=== PATIENT | male | born 1975 | race Two or more races ===

== ENCOUNTER → 2017-04-14 | Outpatient (CLI) | payer OTHER ==
--- NOTE | 2017-04-14 14:51 | REP ---
Left knee series: Five views. History: Acute pain in the left knee. No comparison views. Findings: Five views of the left knee demonstrate mild osteoarthritic spurring at the medial compartment. There is a normal fabella. There is minimal patellar spurring. There is fragmented bony hypertrophy from the medial aspect of the distal femur at the proximal attachment the medial collateral ligament consistent with an old medial collateral ligament injury. No acute bony abnormality is seen. Impression: Evidence of old MCL injury. Mild patellofemoral and medial compartment osteoarthritis. No acute abnormality. Signed by Tramaine Shah MD 04/14/2017 03:33 P
--- NOTE | 2017-04-14 15:01 | REP ---
Lumbar spine series: Five views. History: Acute low back pain. Comparison study: June 30, 2015. Findings: Lumbar vertebral body heights are preserved. There is some straightening. Alignment is otherwise normal. There is fairly advanced degenerative disc disease at L5-S1 and moderate narrowing is seen of the L4-5 disc. Pedicles and posterior elements are intact. There is no evidence of spondylolysis or spondylolisthesis. Sacrum and SI joints are intact. Psoas margins are symmetric. There is a density consistent with a clip in the right lower abdomen. The degenerative disc changes at L5-S1 and L4-5 are radiographically more pronounced than on the June 30, 2015 prior study. Impression: Advanced L5-S1 degenerative disc disease. Moderate degenerative disc changes at L4-5. There are mild osteoarthritic facet changes bilaterally at these levels as well. Radiographically these changes are more pronounced than on the 2014 prior study. No acute bony abnormality. Signed by Tramaine Shah MD 04/14/2017 03:33 P
--- NOTE | 2017-04-14 15:10 | REP ---
THORACIC SPINE: AP and lateral views of the thoracic spine are performed. Four total views were obtained. There is no compression fracture or malalignment with normal thoracic kyphosis. There is mild diffuse spurring with slight disc space narrowing at multiple levels and mild subchondral sclerosis. The posterior elements are intact. IMPRESSION: Mild diffuse degenerative changes without fracture or dislocation. Signed by Vladimir Stephenson MD 04/14/2017 04:15 P
== END ==
LOC: M ADAMS 10:46
PROVIDERS: ATTEND Physician Assistant Medical
DX: M54.5 Low back pain (principal); M25.562 Pain in left knee

== ENCOUNTER → 2017-04-14 | Outpatient (REF) | payer OTHER ==
[2017-04-14 13:38] LABS: BASO # 0.1 10^3/uL (0.0-0.2); BASO % 0.5 % (0.0-1.0); EOS # 0.2 10^3/uL (0.0-0.50); EOS % 2.3 % (0.0-3.0); IMMATURE GRANULOCYTE % 0.4 % (0-0); LYMPH # 2.6 10^3/uL (1.5-4.5); MEAN CORPUSCULAR HEMOGLOBIN 31.6 pg (27.0-33.0); MEAN CORPUSCULAR HGB CONC 33.8 g/dl (32.0-36.5); MEAN CORPUSCULAR VOLUME 93.6 fl (80.0-96.0); MONO # 0.7 10^3/uL (0.0-0.8); MONO % 6.6 % (0.0-5.0); NEUTROPHILS # 6.4 10^3/uL (1.8-7.7); NEUTROPHILS % 64.2 % (36.0-66.0); PLATELET COUNT, AUTOMATED 298 10^3/uL (150-450); RED CELL DISTRIBUTION WIDTH 13.3 % (11.5-14.5); WHITE BLOOD COUNT 9.9 10^3/uL (4.0-10.0)
[2017-04-14 13:40] LABS: ADD MANUAL DIFFER NO; DIFF SLIDE NUMBER 194
[2017-04-14 16:04] LABS: ALBUMIN 3.7 GM/DL (3.2-5.2); ALBUMIN/GLOBULIN RATIO 0.97 (1.00-1.93); ALKALINE PHOSPHATASE 89 U/L (45-117); ALT/SGPT 24 U/L (12-78); ANION GAP 6 MEQ/L (8-16); AST/SGOT 16 U/L (15-37); BILIRUBIN,TOTAL 0.3 MG/DL (0.2-1.0); BLOOD UREA NITROGEN 12 MG/DL (7-18); CALCIUM LEVEL 8.7 MG/DL (8.5-10.1); CARBON DIOXIDE LEVEL 26 MEQ/L (21-32); CHLORIDE LEVEL 106 MEQ/L (98-107); CHOLESTEROL LEVEL 164 MG/DL (<200); CREATININE FOR GFR 0.77 MG/DL (0.70-1.30); FREE T4 0.91 NG/DL (0.76-1.46); GLOMERULAR FILTRATION RATE > 60.0 (>60); GLUCOSE, FASTING 108 MG/DL (70-105); POTASSIUM SERUM 4.5 MEQ/L (3.5-5.1); SODIUM LEVEL 138 MEQ/L (136-145); TOTAL PROTEIN 7.5 GM/DL (6.4-8.2); TRIGLYCERIDES LEVEL 618 MG/DL (<150)
[2017-04-17 00:07] LABS: Lyme Disease IgG Ab 18 kDa Ban Present (.); Lyme Disease IgG Ab 23 kDa Ban Present (.); Lyme Disease IgG Ab 28 kDa Ban Absent (.); Lyme Disease IgG Ab 30 kDa Ban Present (.); Lyme Disease IgG Ab 39 kDa Ban Present (.); Lyme Disease IgG Ab 41 kDa Ban Present (.); Lyme Disease IgG Ab 45 kDa Ban Present (.); Lyme Disease IgG Ab 58 kDa Ban Absent (.); Lyme Disease IgG Ab 66 kDa Ban Present (.); Lyme Disease IgG Ab 93 kDa Ban Absent (.); Lyme Disease IgG West Blot Int Positive (.); Lyme Disease IgG/IgM Antibodie 2.23 ISR (0.00-0.90); Lyme Disease IgM Ab 23 kDa Ban Present (.); Lyme Disease IgM Ab 39 kDa Ban Absent (.); Lyme Disease IgM Ab 41 kDa Ban Present (.); Lyme Disease IgM Ab Quantitati 1.69 index (0.00-0.79); Lyme Disease IgM West Blot Int Positive (.)
== END ==
LOC: M SFHCADAM 10:35
PROVIDERS: ATTEND Physician Assistant Medical
DX: K21.9 Gastro-esophageal reflux disease without esophagitis (principal); Z82.49 Family history of ischemic heart disease and other diseases of the circulatory system; F17.210 Nicotine dependence, cigarettes, uncomplicated; W57.XXXA Bitten or stung by nonvenomous insect and other nonvenomous arthropods, initial encounter

== ENCOUNTER → 2017-09-03 | Outpatient (REF) | payer OTHER ==
[2017-09-03 13:03] LABS: ALBUMIN 3.6 GM/DL (3.2-5.2); ALBUMIN/GLOBULIN RATIO 0.97 (1.00-1.93); ALKALINE PHOSPHATASE 79 U/L (45-117); ALT/SGPT 31 U/L (12-78); ANION GAP 6 MEQ/L (8-16); AST/SGOT 26 U/L (7-37); BILIRUBIN,TOTAL 0.3 MG/DL (0.2-1.0); BLOOD UREA NITROGEN 14 MG/DL (7-18); CALCIUM LEVEL 9.4 MG/DL (8.5-10.1); CARBON DIOXIDE LEVEL 28 MEQ/L (21-32); CHLORIDE LEVEL 103 MEQ/L (98-107); CHOLESTEROL LEVEL 201 MG/DL (<200); CHOLESTEROL RISK RATIO 5.742 (<5); CREATININE FOR GFR 0.87 MG/DL (0.70-1.30); GLOMERULAR FILTRATION RATE > 60.0 (>60); GLUCOSE, FASTING 121 MG/DL (70-100); HDL CHOLESTEROL 35 MG/DL (>40); LDL CHOLESTEROL 92.4 MG/DL (<100); NON-HDL-C 166 MG/DL; POTASSIUM SERUM 4.6 MEQ/L (3.5-5.1); SODIUM LEVEL 137 MEQ/L (136-145); TOTAL PROTEIN 7.3 GM/DL (6.4-8.2); TRIGLYCERIDES LEVEL 368 MG/DL (<150)
== END ==
LOC: M SFHCADAM 09:14
DX: K21.9 Gastro-esophageal reflux disease without esophagitis (principal); E55.9 Vitamin D deficiency, unspecified; E78.1 Pure hyperglyceridemia

== ENCOUNTER → 2018-10-27 | Outpatient (REF) | payer OTHER ==
[2018-10-27 12:41] LABS: BASO # 0.1 10^3/uL (0.0-0.2); BASO % 0.6 % (0.0-1.0); EOS # 0.3 10^3/uL (0.0-0.50); EOS % 2.4 % (0.0-3.0); HEMATOCRIT 47.7 % (42.0-52.0); LYMPH # 3.2 10^3/uL (1.5-4.5); MEAN CORPUSCULAR HEMOGLOBIN 31.2 pg (27.0-33.0); MEAN CORPUSCULAR HGB CONC 33.5 g/dl (32.0-36.5); MONO # 0.8 10^3/uL (0.0-0.8); MONO % 7.7 % (0.0-5.0); NEUTROPHILS # 6.3 10^3/uL (1.8-7.7); NEUTROPHILS % 58.8 % (36.0-66.0); PLATELET COUNT, AUTOMATED 300 10^3/uL (150-450); RED BLOOD COUNT 5.13 10^6/uL (4.30-6.10); WHITE BLOOD COUNT 10.7 10^3/uL (4.0-10.0)
[2018-10-27 13:05] LABS: ALT/SGPT 51 U/L (12-78); BILIRUBIN,TOTAL 0.3 MG/DL (0.2-1.0); BLOOD UREA NITROGEN 15 MG/DL (7-18); CALCIUM LEVEL 9.3 MG/DL (8.5-10.1); CARBON DIOXIDE LEVEL 28 MEQ/L (21-32); CHLORIDE LEVEL 104 MEQ/L (98-107); CHOLESTEROL LEVEL 250 MG/DL (<200); CREATININE FOR GFR 0.78 MG/DL (0.70-1.30); GLOMERULAR FILTRATION RATE > 60.0 (>60); GLUCOSE, FASTING 128 MG/DL (70-100); HDL CHOLESTEROL 29 MG/DL (>40); NON-HDL-C 221 MG/DL; POTASSIUM SERUM 4.2 MEQ/L (3.5-5.1); SODIUM LEVEL 140 MEQ/L (136-145); TOTAL PROTEIN 7.9 GM/DL (6.4-8.2); TRIGLYCERIDES LEVEL 847 MG/DL (<150)
[2018-10-27 13:12] LABS: TOTAL 25(OH) VITAMIN D 11.4 NG/ML (30.0-100.0)
== END ==
LOC: M SFHCADAM 09:20
PROVIDERS: ATTEND Physician Assistant Medical
DX: K21.9 Gastro-esophageal reflux disease without esophagitis (principal); E55.9 Vitamin D deficiency, unspecified; E78.1 Pure hyperglyceridemia

== ENCOUNTER 2019-05-09 16:57 | Emergency (ER) | payer OTHER, SELFPAY ==
[~2019-05-09] VITALS: Ht 185.4 cm; Wt 95.5 kg
[2019-05-09] MEDS ORDERED: MELO15TA28 (17:05)
[2019-05-09] MEDS ORDERED: OMEP-218 (17:05)
[2019-05-09] MEDS ORDERED: NAPR-837 PO (19:30)
[2019-05-09] MEDS ORDERED: KETOROLAC 60 MG/2 ML VIAL (J1885) IM ONE (19:30)
[2019-05-09] MEDS ORDERED: traMADol 50 MG TAB (BULK 4 TAB ED) PO ONE (19:45)
[2019-05-09 19:47] VITALS: BP 142/88
== END 2019-05-09 20:03 | disposition home or self-care (01) ==
LOC: M ED 16:57
DX: M54.42 Lumbago with sciatica, left side (principal); F17.200 Nicotine dependence, unspecified, uncomplicated; Z79.899 Other long term (current) drug therapy
CPT/HCPCS: 96372; 99283; J1885

== ENCOUNTER → 2020-01-05 | Outpatient (REF) | payer OTHER ==
[~2020-01-05] MED LIST: MELO15TA28; NAPR-837 PO; OMEP-218
[2020-01-05 17:50] LABS: ALBUMIN 3.7 GM/DL (3.2-5.2); ALT/SGPT 77 U/L (12-78); BILIRUBIN,TOTAL 0.5 MG/DL (0.2-1.0); BLOOD UREA NITROGEN 13 MG/DL (7-18); CALCIUM LEVEL 9.2 MG/DL (8.5-10.1); CARBON DIOXIDE LEVEL 26 MEQ/L (21-32); CHLORIDE LEVEL 107 MEQ/L (98-107); CHOLESTEROL LEVEL 167 MG/DL (<200); CHOLESTEROL RISK RATIO 6.958 (<5); CREATININE FOR GFR 0.93 MG/DL (0.70-1.30); GLOMERULAR FILTRATION RATE > 60.0 (>60); GLUCOSE, FASTING 105 MG/DL (70-100); HDL CHOLESTEROL 24 MG/DL (>40); NON-HDL-C 143 MG/DL; POTASSIUM SERUM 4.3 MEQ/L (3.5-5.1); SODIUM LEVEL 141 MEQ/L (136-145); TOTAL PROTEIN 7.6 GM/DL (6.4-8.2); TRIGLYCERIDES LEVEL 505 MG/DL (<150)
[2020-01-05 18:53] LABS: HEMOGLOBIN A1c 7.4 %
[2020-01-06 09:24] LABS: TOTAL 25(OH) VITAMIN D 27.6 NG/ML (30.0-100.0)
== END ==
LOC: M SFHCADAM 13:45
PROVIDERS: ATTEND Physician Assistant Medical
DX: E78.1 Pure hyperglyceridemia (principal); R73.01 Impaired fasting glucose; E55.9 Vitamin D deficiency, unspecified

== ENCOUNTER 2020-10-06 10:48 | Emergency (ER) | payer OTHER ==
[~2020-10-06] VITALS: Ht 185.4 cm; Wt 103.5 kg
[~2020-10-06 10:48] MED LIST changes: -OMEP-218; +OMEP-218 PO
[2020-10-06] MEDS ORDERED: ACET1TAB16 (10:59)
[2020-10-06] MEDS ORDERED: TIZA4TAB4 (10:59)
[2020-10-06] MEDS ORDERED: NS 1,000 ML IV ONE ×2 (11:20→13:25)
[2020-10-06 11:51] LABS: BASO # 0.1 10^3/uL (0.0-0.2); BASO % 0.4 % (0.0-1.0); EOS # 0.1 10^3/uL (0.0-0.5); HEMATOCRIT 45.3 % (42.0-52.0); HEMOGLOBIN 16.7 g/dl (13.5-17.5); LYMPH # 1.8 10^3/uL (1.5-5.0); LYMPH % 14.7 % (24.0-44.0); MEAN CORPUSCULAR HGB CONC 36.9 g/dl (32.0-36.5); MEAN CORPUSCULAR VOLUME 89.5 fl (80.0-96.0); MONO # 0.7 10^3/uL (0.0-0.8); MONO % 5.8 % (2.0-8.0); NEUTROPHILS # 9.5 10^3/uL (1.5-8.5); NEUTROPHILS % 77.6 % (36.0-66.0); PLATELET COUNT, AUTOMATED 258 10^3/uL (150-450); RED BLOOD COUNT 5.06 10^6/uL (4.30-6.10); WHITE BLOOD COUNT 12.3 10^3/uL (4.0-10.0)
[2020-10-06] MEDS ORDERED: KETOROLAC 30 MG/ML 1ML VIAL IV ONE (11:55)
--- NOTE | 2020-10-06 12:21 | REP ---
INDICATION: left sided rib pain, pain with deep breaths. COMPARISON: Comparison chest x-ray October 10, 2008. TECHNIQUE: Two views.. FINDINGS: The lungs are well inflated and free of infiltrate. The pleural angles are sharp. The heart size is normal. Pulmonary vasculature is not increased. No significant bony abnormality is seen. There is a small linear density in the left base consistent with linear fibrosis. IMPRESSION: No active disease.. <Electronically signed by Raymundo Shah > 10/06/20 1997
--- NOTE | 2020-10-06 12:23 | REP ---
INDICATION: Abdominal Pain, no bs throughout. COMPARISON: Comparison radiograph June 30, 2015.. TECHNIQUE: Two views, upright and supine views of the abdomen. FINDINGS: There is no evidence of free subdiaphragmatic air or basilar infiltrate. There is a surgical clip in the right lower abdomen unchanged. Flank stripes and psoas margins are symmetric. No acute bony abnormality is seen. No mass, organomegaly, or pathologic calcification is seen. Bowel gas pattern is unremarkable. IMPRESSION: Negative abdominal series. Surgical clip in the right lower abdomen. <Electronically signed by Raymundo Shah > 10/06/20 [id number]
[2020-10-06] MEDS ORDERED: ISOVUE-370 76% 100ML VIAL As Ordered ONE (12:37)
[2020-10-06] MEDS ORDERED: ONDANSETRON 4MG/2ML VIAL IV ONE (12:45)
[2020-10-06] MEDS ORDERED: MORPHINE 4 MG/ML 1ML VIAL/SYRINGE (J2270) IV ONE ×2 (12:45→14:20)
--- NOTE | 2020-10-06 13:03 | REP ---
INDICATION: diffuse abd pain, decreased bowel sounds. COMPARISON: Comparison abdominal radiographs from earlier today.. TECHNIQUE: Helical scanning was acquired and 4 mm axial images are re-formatted. Coronal and sagittal MPR images were generated and reviewed. The contrast enhancement dose is 100 mL of intravenous Isovue 370. FINDINGS: Digital preliminary cloth bleaching range tender radiograph is unremarkable. Bowel gas pattern is normal. The lung bases show mild platelike atelectasis in the lower lobes bilaterally. No infiltrate is seen. On axial CT images through the abdomen there is marked diffuse fatty infiltration of the liver. The liver is enlarged. Midclavicular line vertical span is 21.8 cm. No focal liver lesion is seen. There are areas of fat sparing anteriorly and adjacent to the gallbladder. No biliary ductal dilation is observed. The spleen is normal in size homogeneous in texture. There are accessory splenule. The largest of these is inferior to the spleen tip measuring 2.2 cm in diameter. There is focal pancreatic swelling and peripancreatic edema in the tail of the pancreas. Some edema extends into the adjacent perinephric fat and adjacent to the adrenal gland. The remainder of the pancreas has a normal appearance. This should be correlated clinically. It may reflect focal pancreatitis. It interval follow-up is recommended. No retroperitoneal mass or adenopathy is seen. Normal caliber aorta is noted. Small and large intestinal bowel loops are unremarkable in the abdomen and pelvis. The appendix is surgically absent. Prostate, seminal vesicles and urinary bladder are unremarkable. No abdominal wall defect is seen. The kidneys enhance symmetrically and are morphologically intact. There is a tiny cortical cyst in the right mid kidney. No bony destructive lesion is seen. No abnormality is noted in the gallbladder. IMPRESSION: There is focal swelling and edema within and around the tail of the pancreas question focal pancreatitis. This should be correlated with clinical parameters and laboratory studies. Marked diffuse fatty infiltration of the liver and hepatomegaly. Otherwise negative. Recommend pancreatic follow-up imaging. <Electronically signed by Raymundo Shah > 10/06/20 1300
[2020-10-06 13:22] LABS: ACETONE/KETONE 9.24 MG/DL (<2.81); ALBUMIN 3.6 GM/DL (3.2-5.2); ALT/SGPT 86 U/L (12-78); BILIRUBIN,DIRECT < 0.1 MG/DL (0.0-0.2); BILIRUBIN,TOTAL 1.1 MG/DL (0.2-1.0); CK-MB VALUE MASS < 1.0 NG/ML (<3.6); CPK CREATINE PHOSPHOKINASE 91 U/L (39-308); LIPASE 483 U/L (73-393); TOTAL PROTEIN 8.6 GM/DL (6.4-8.2); TROPONIN I < 0.02 NG/ML (< 0.10)
[2020-10-06 14:12] LABS: VENOUS BASE EXCESS -1.9 (-2.0-2.0); VENOUS HCO3 23.7 MEQ/L (23.0-27.0); VENOUS O2 SATURATION 80.4 % (60.0-80.0); VENOUS PARTIAL PRESSURE CO2 43.8 mmHg (38.0-50.0); VENOUS PARTIAL PRESSURE O2 45.3 mmHg (30.0-50.0); VENOUS PH 7.352 UNITS (7.330-7.430); VENOUS STANDARD HCO3 22.4 MEQ/L; VENOUS TOTAL CO2 25.1 MEQ/L (24.0-28.0)
[2020-10-06] MEDS ORDERED: METF-838 PO (14:41)
[2020-10-06] MEDS ORDERED: HYDR-3713 PO (14:41)
[2020-10-06 14:53] LABS: HEMOGLOBIN A1c 9.6 %
[2020-10-06 14:57] VITALS: BP 142/98
--- NOTE | 2020-10-07 07:35 | ECGEPIP ---
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
--- NOTE | 2020-10-08 12:21 | ED PDOC ---
Post-Departure Follow-Up ct abd/p faxed to leny barrera for fu Jarod Cash MD Oct 08, 2020 12:21
== END 2020-10-06 15:03 | disposition home or self-care (01) ==
LOC: M ED 10:48
DX: K85.90 Acute pancreatitis without necrosis or infection, unspecified (principal); E11.9 Type 2 diabetes mellitus without complications; R80.9 Proteinuria, unspecified; R16.0 Hepatomegaly, not elsewhere classified; K76.0 Fatty (change of) liver, not elsewhere classified; R00.0 Tachycardia, unspecified; R05 Cough; K59.00 Constipation, unspecified; K21.9 Gastro-esophageal reflux disease without esophagitis; F17.200 Nicotine dependence, unspecified, uncomplicated
CPT/HCPCS: 71046; 74019; 74177; 80047; 80076; 81001; 82010; 82550; 82553; 82803; 83036; 83690; 85025; 93005; 96361; 96374; 96375; 96376; 99284; J1885; J2270; J2405; Q9967

== ENCOUNTER → 2020-10-11 | Outpatient (REF) | payer OTHER ==
[~2020-10-11] MED LIST changes: +ACET1TAB16; +HYDR-3713 PO; +METF-838 PO; +TIZA4TAB4
[2020-10-11 13:01] LABS: BASO # 0.1 10^3/uL (0.0-0.2); BASO % 0.8 % (0.0-1.0); EOS # 0.3 10^3/uL (0.0-0.5); EOS % 3.3 % (0.0-3.0); HEMATOCRIT 42.2 % (42.0-52.0); HEMOGLOBIN 13.8 g/dl (13.5-17.5); LYMPH % 26.1 % (24.0-44.0); MEAN CORPUSCULAR HEMOGLOBIN 30.3 pg (27.0-33.0); MEAN CORPUSCULAR HGB CONC 32.7 g/dl (32.0-36.5); MEAN CORPUSCULAR VOLUME 92.5 fl (80.0-96.0); MONO # 0.7 10^3/uL (0.0-0.8); MONO % 8.6 % (2.0-8.0); NEUTROPHILS # 4.6 10^3/uL (1.5-8.5); NEUTROPHILS % 60.8 % (36.0-66.0); PLATELET COUNT, AUTOMATED 318 10^3/uL (150-450); RED BLOOD COUNT 4.56 10^6/uL (4.30-6.10); WHITE BLOOD COUNT 7.6 10^3/uL (4.0-10.0)
[2020-10-11 13:38] LABS: ALBUMIN 2.9 GM/DL (3.2-5.2); ALT/SGPT 70 U/L (12-78); BILIRUBIN,TOTAL 0.3 MG/DL (0.2-1.0); BLOOD UREA NITROGEN 12 MG/DL (7-18); CALCIUM LEVEL 9.4 MG/DL (8.5-10.1); CARBON DIOXIDE LEVEL 27 MEQ/L (21-32); CHLORIDE LEVEL 98 MEQ/L (98-107); CHOLESTEROL LEVEL 252 MG/DL (<200); CREATININE FOR GFR 0.89 MG/DL (0.70-1.30); GLOMERULAR FILTRATION RATE > 60.0 (>60); GLUCOSE, FASTING 261 MG/DL (70-100); HDL CHOLESTEROL 18 MG/DL (>40); LIPASE 290 U/L (73-393); NON-HDL-C 234 MG/DL; POTASSIUM SERUM 4.4 MEQ/L (3.5-5.1); SODIUM LEVEL 133 MEQ/L (136-145); TOTAL PROTEIN 7.3 GM/DL (6.4-8.2); TRIGLYCERIDES LEVEL 706 MG/DL (<150)
== END ==
LOC: M SFHCADAM 08:37
PROVIDERS: ATTEND Physician Assistant Medical
DX: E11.9 Type 2 diabetes mellitus without complications (principal); E78.1 Pure hyperglyceridemia; K85.90 Acute pancreatitis without necrosis or infection, unspecified

== ENCOUNTER → 2020-11-01 | Outpatient (CLI) | payer OTHER ==
[~2020-11-01] MED LIST changes: +GASTROGRAFIN SOLUTION 30ML (Q9963) As Ordered ONE; +ISOVUE-370 76% 100ML VIAL As Ordered ONE
--- NOTE | 2020-11-02 08:04 | REP ---
INDICATION: ACUTE PANCREATITIS WITHOUT NECROSIS OR INFECTION, UNSP. COMPARISON: 10/06/2020 TECHNIQUE: Axial contrast-enhanced images from the lung bases to the pubic symphysis using oral and 100 cc Isovue 370 intravenous contrast material. Coronal and sagittal reformations obtained. This CT examination was performed using the following dose reduction techniques: Automated exposure control, adjustment of mA and/or kv according to the patient's size, and the use of iterative reconstruction technique. FINDINGS: Mild/moderate stranding surrounding the tail of the pancreas with subtle extension along the anterior pararenal space appears increased from prior examination. Findings are consistent with continued pancreatitis and should be correlated clinically. No adjacent adenopathy or fluid collection/abscess/pseudo cyst. Remainder of the pancreas appears normal. Diffuse hepatosteatosis again noted. Spleen/splenule, gallbladder, bilateral adrenal glands and kidneys are normal. The enteric system including stomach, small, and large bowel appears normal. No evidence for obstruction or acute inflammatory process. Colonic diverticula noted without acute diverticulitis. Pelvis demonstrates normal bladder and age-appropriate prostate/seminal vesicles. No ascites. No free air. No intraperitoneal or retroperitoneal adenopathy. Abdominal aorta and vasculature appear normal. Musculoskeletal structures are intact and without acute osseous abnormality. IMPRESSION: 1. Inflammatory changes surrounding the tail the pancreas are slightly increased from prior examination. Correlation is required. Findings suggest continued pancreatitis. 2. Hepatosteatosis. 3. Colonic diverticulosis. <Electronically signed by Shyam Teran > 11/02/20 0801
== END ==
LOC: M RAD 16:45
PROVIDERS: ATTEND Physician Assistant Medical
DX: K85.90 Acute pancreatitis without necrosis or infection, unspecified (principal)
CPT/HCPCS: 74177; Q9963; Q9967

== ENCOUNTER → 2021-01-03 | Outpatient (CLI) | payer OTHER ==
--- NOTE | 2021-01-03 09:06 | REP ---
INDICATION: ACUTE PANCREATITIS. COMPARISON: CT 11/01/2020. TECHNIQUE: Real-time sonographic evaluation of right upper quadrant performed. FINDINGS: The gallbladder demonstrates no evidence of intraluminal sludge or calculi, wall thickening or pericholecystic fluid. There is no intrahepatic or extrahepatic biliary dilatation, common bile duct measures 3 mm in maximum diameter. Liver is mildly enlarged with a length of approximately 22 cm. There is diffuse increased echotexture of the liver compatible with diffuse fatty infiltration. No gross mass is seen. The pancreas demonstrates homogeneous echotexture with no gross mass. The right kidney demonstrates no hydronephrosis, with a normal size of 13.5 cm in length. No free fluid is seen. IMPRESSION: No gallstones or biliary dilatation. No free fluid. Mild hepatomegaly with diffuse fatty infiltration of the liver. Sonographically the pancreas is grossly unremarkable. <Electronically signed by Vladimir Stephenson > 01/03/21 0903
--- NOTE | 2021-01-03 10:27 | REP ---
INDICATION: ACUTE PANCREATITIS COMPARISON: 11/01/2020. TECHNIQUE: CT Scan of the abdomen and pelvis was performed with intravenous administration of 100 cc of Isovue 370, and oral contrast. FINDINGS: Lung bases: There are mild bibasilar fibrotic changes. Liver: There is mild hepatomegaly, the length of the liver is approximately 19.5 cm. There is somewhat low density diffusely throughout the liver suggesting diffuse fatty infiltration. There is subtle rounded hypodense area centrally at the taj hepatis which measures about 2.6 cm in diameter. A subtle underlying liver mass cannot be excluded. Alternatively this could represent heterogeneous fatty infiltration. The main portal vein measures approximately 17 mm suggesting some degree of portal hypertension. Gallbladder: Unremarkable. Spleen: The spleen is mildly enlarged with a length of 13.9 cm. Adrenals: Normal. Pancreas: Once again in the tail the pancreas there is an ill-defined 1 cm hypodense area with adjacent stranding of the posterior peripancreatic fat. The peripancreatic inflammatory changes have improved compared to the most recent CT of 11/01/2020. Kidneys: Normal. Small and large bowel: There is scattered colonic diverticulosis without evidence of acute diverticulitis.. Free fluid: None. Abdominal aorta: No aneurysm or dissection. Adenopathy: None. Appendix: Prior appendectomy. Osseous structures: There are mild degenerative changes of the spine without compression deformity. Pelvis: No mass. There are subcutaneous inflammatory changes in the left inguinal soft tissues which are nonspecific. IMPRESSION: Mild hepatosplenomegaly. There are findings again suggesting diffuse fatty infiltration. A subtle rounded hypodense area centrally at the taj hepatis measures 2.6 cm in diameter. This could represent a subtle mass or heterogeneous fatty infiltration. Recommend MRI of the liver with and without contrast to further evaluate. Once again in the tail of the pancreas there is an ill-defined 1 cm hypodense area with adjacent stranding of the posterior peripancreatic fat. The inflammatory changes have improved since 11/01/2020. Continued follow-up is recommended. There are subcutaneous inflammatory changes in the left inguinal soft tissues which are nonspecific. <Electronically signed by Vladimir Stephenson > 01/03/21 1024
== END ==
LOC: M RAD 07:35
PROVIDERS: ATTEND Internal Medicine Gastroenterology
DX: K85.90 Acute pancreatitis without necrosis or infection, unspecified (principal)
CPT/HCPCS: 74177; 76705; Q9963; Q9967

== ENCOUNTER → 2021-02-15 | Outpatient (CLI) | payer OTHER ==
[~2021-02-15] MED LIST changes: -GASTROGRAFIN SOLUTION 30ML (Q9963) As Ordered ONE; -ISOVUE-370 76% 100ML VIAL As Ordered ONE; +OMEP-173 PO; -OMEP-218 PO; +TIZA10TA; -TIZA4TAB4
[2021-02-15 17:50] LABS: ALBUMIN 3.8 GM/DL (3.2-5.2); ALT/SGPT 59 U/L (12-78); BILIRUBIN,DIRECT < 0.1 MG/DL (0.0-0.2); BILIRUBIN,TOTAL 0.4 MG/DL (0.2-1.0); IRON (FE) 72 UG/DL (65-175); TOTAL IRON BINDING CAPACITY 424 UG/DL (250-450); TOTAL PROTEIN 7.6 GM/DL (6.4-8.2)
[2021-02-15 18:11] LABS: HEPATITIS B SURFACE ANTIGEN NEGATIVE (NEGATIVE)
[2021-02-15 18:38] LABS: HEPATITIS B CORE ANTIBODY IGM NEGATIVE (NEGATIVE); HEPATITIS C VIRUS ABY INDEX 0.1 INDEX (<0.8)
[2021-02-19 16:11] LABS: ANCA-ATYPICAL <1:20 titer (Neg:<1:20); ANTI-MITOCHONDRIAL ANTIBODY <20.0 Units (0.0-20.0); ANTINUCLEAR ANTIBODIES DIRECT Negative (Negative); CERULOPLASMIN 31.2 mg/dL (16.0-31.0); CYTOPLASMIC NEUTROP AB ANCA-C <1:20 titer (Neg:<1:20); LIVER-KIDNEY MICROSOMAL ABY <20.1 Units (0.0-20.0); PERINUCLEAR AB ANCA-P <1:20 titer (Neg:<1:20)
== END ==
LOC: M RAD 16:50 → M LAB 16:50
PROVIDERS: ATTEND Internal Medicine Gastroenterology
DX: K76.0 Fatty (change of) liver, not elsewhere classified (principal); R93.3 Abnormal findings on diagnostic imaging of other parts of digestive tract; D37.6 Neoplasm of uncertain behavior of liver, gallbladder and bile ducts

== ENCOUNTER → 2021-08-21 | Outpatient (CLI) | payer OTHER ==
[~2021-08-21] MED LIST changes: +GASTROGRAFIN SOLUTION 30ML (Q9963) As Ordered ONE; +ISOVUE-370 76% 100ML VIAL As Ordered ONE
== END ==
LOC: M RAD 08:17
PROVIDERS: ATTEND Internal Medicine Gastroenterology
DX: K85.90 Acute pancreatitis without necrosis or infection, unspecified (principal); D37.8 Neoplasm of uncertain behavior of other specified digestive organs; R16.2 Hepatomegaly with splenomegaly, not elsewhere classified
CPT/HCPCS: 74177; Q9963; Q9967

== ENCOUNTER 2023-02-08 12:27 | Emergency (ER) | payer OTHER ==
[~2023-02-08] VITALS: Ht 185.4 cm; Wt 93.0 kg
[~2023-02-08 12:27] MED LIST changes: -ACET1TAB16; +ACET300T48; -GASTROGRAFIN SOLUTION 30ML (Q9963) As Ordered ONE; -ISOVUE-370 76% 100ML VIAL As Ordered ONE
[2023-02-08] MEDS ORDERED: ISOVUE-370 76% 100ML VIAL As Ordered ONE (13:25)
[2023-02-08] MEDS ORDERED: MORPHINE 4 MG/ML 1ML VIAL IV ONE (16:40)
[2023-02-08] MEDS ORDERED: METHOCARBAMOL 1,000 MG/10 ML VIAL IV ONE (16:40)
[2023-02-08 16:56] LABS: BASO # 0.1 10^3/uL (0.0-0.2); BASO % 0.6 % (0.0-1.0); EOS # 0.1 10^3/uL (0.0-0.5); EOS % 1.1 % (0.0-3.0); HEMOGLOBIN 16.5 g/dl (13.5-17.5); LYMPH # 2.9 10^3/uL (1.5-5.0); LYMPH % 28.9 % (24.0-44.0); MEAN CORPUSCULAR HEMOGLOBIN 31.1 pg (27.0-33.0); MEAN CORPUSCULAR HGB CONC 35.1 g/dl (32.0-36.5); MEAN CORPUSCULAR VOLUME 88.5 fl (80.0-96.0); MONO # 0.7 10^3/uL (0.0-0.8); MONO % 6.8 % (2.0-8.0); NEUTROPHILS # 6.3 10^3/uL (1.5-8.5); PLATELET COUNT, AUTOMATED 223 10^3/uL (150-450); RED BLOOD COUNT 5.31 10^6/uL (4.30-6.10); WHITE BLOOD COUNT 10.2 10^3/uL (4.0-10.0)
[2023-02-08 18:04] VITALS: BP 143/85; TEMP 97.4; O2SAT 98
[2023-02-08] MEDS ORDERED: PERC5TAB12 PO ×2 (18:19→18:21)
[2023-02-08] MEDS ORDERED: CYCL-707 PO (18:19)
[2023-02-08] MEDS ORDERED: LIDO5DIS41 TD (18:19)
== END 2023-02-08 18:19 | disposition left against medical advice (07) ==
LOC: M ED 12:27
DX: S32.040A Wedge compression fracture of fourth lumbar vertebra, initial encounter for closed fracture (principal); S32.009A Unspecified fracture of unspecified lumbar vertebra, initial encounter for closed fracture; M46.1 Sacroiliitis, not elsewhere classified; V86.55XA Driver of 3- or 4- wheeled all-terrain vehicle (ATV) injured in nontraffic accident, initial encounter; K21.9 Gastro-esophageal reflux disease without esophagitis; F17.200 Nicotine dependence, unspecified, uncomplicated; F10.10 Alcohol abuse, uncomplicated; Z79.899 Other long term (current) drug therapy; Z53.9 Procedure and treatment not carried out, unspecified reason
CPT/HCPCS: 72131; 72190; 80047; 85025; 96374; 96375; 99283; J2800; Q9967

== ENCOUNTER 2023-05-30 07:56 | Emergency (ER) | payer OTHER ==
[~2023-05-30] VITALS: Ht 185.4 cm; Wt 96.5 kg
[~2023-05-30 07:56] MED LIST changes: +CYCL-707 PO; +LIDO5DIS41 TD; +PERC5TAB12 PO
[2023-05-30] MEDS ORDERED: MELO15TA28 (08:07)
[2023-05-30 10:15] LABS: BASO # 0.1 10^3/uL (0.0-0.2); BASO % 0.7 % (0.0-1.0); EOS # 0.2 10^3/uL (0.0-0.5); EOS % 1.8 % (0.0-3.0); HEMATOCRIT 44.7 % (42.0-52.0); HEMOGLOBIN 16.3 g/dl (13.5-17.5); LYMPH # 2.9 10^3/uL (1.5-5.0); LYMPH % 32.6 % (24.0-44.0); MEAN CORPUSCULAR HEMOGLOBIN 31.8 pg (27.0-33.0); MEAN CORPUSCULAR HGB CONC 36.5 g/dl (32.0-36.5); MEAN CORPUSCULAR VOLUME 87.1 fl (80.0-96.0); MONO # 0.5 10^3/uL (0.0-0.8); MONO % 5.4 % (2.0-8.0); NEUTROPHILS # 5.3 10^3/uL (1.5-8.5); NEUTROPHILS % 59.4 % (36.0-66.0); PLATELET COUNT, AUTOMATED 268 10^3/uL (150-450); RED BLOOD COUNT 5.13 10^6/uL (4.30-6.10); WHITE BLOOD COUNT 8.9 10^3/uL (4.0-10.0)
[2023-05-30 10:29] LABS: BLOOD UREA NITROGEN 13 MG/DL (9-23); CALCIUM LEVEL 9.8 MG/DL (8.5-10.1); CARBON DIOXIDE LEVEL 22 MMOL/L (20-31); CHLORIDE LEVEL 97 MMOL/L (98-107); CREATININE FOR GFR 0.48 MG/DL (0.70-1.30); GLOMERULAR FILTRATION RATE > 60.0 (>60); GLUCOSE, FASTING 191 MG/DL (60-100); POTASSIUM SERUM 4.4 MMOL/L (3.5-5.1); SODIUM LEVEL 129 MMOL/L (136-145)
[2023-05-30 10:42] LABS: URIC ACID 3.2 MG/DL (3.7-9.2)
[2023-05-30] MEDS ORDERED: INDO50CA91 PO (11:10)
[2023-05-30 11:26] VITALS: BP 172/76; TEMP 98.4; O2SAT 98
== END 2023-05-30 11:36 | disposition home or self-care (01) ==
LOC: M ED 07:56
DX: M25.531 Pain in right wrist (principal); M19.90 Unspecified osteoarthritis, unspecified site; E87.1 Hypo-osmolality and hyponatremia; Z79.899 Other long term (current) drug therapy

== ENCOUNTER → 2023-09-23 | Outpatient (REF) | payer OTHER ==
[~2023-09-23] MED LIST changes: +INDO50CA91 PO
[2023-09-23 14:57] LABS: BASO # 0.1 10^3/uL (0.0-0.2); BASO % 0.6 % (0.0-1.0); EOS # 0.2 10^3/uL (0.0-0.5); EOS % 2.1 % (0.0-3.0); HEMATOCRIT 43.4 % (42.0-52.0); LYMPH % 37.2 % (24.0-44.0); MEAN CORPUSCULAR VOLUME 91.8 fl (80.0-96.0); MONO # 0.5 10^3/uL (0.0-0.8); MONO % 5.8 % (2.0-8.0); NEUTROPHILS # 4.3 10^3/uL (1.5-8.5); PLATELET COUNT, AUTOMATED 295 10^3/uL (150-450); RED BLOOD COUNT 4.73 10^6/uL (4.30-6.10); WHITE BLOOD COUNT 7.9 10^3/uL (4.0-10.0)
[2023-09-23 15:36] LABS: ERYTHROCYTE SEDIMENTATION RATE 19 mm/hr (0-15)
[2023-09-23 17:08] LABS: HEMOGLOBIN 14.4 g/dl (13.5-17.5); MEAN CORPUSCULAR HGB CONC 33.2 g/dl (32.0-36.5)
[2023-09-23 17:09] LABS: MEAN CORPUSCULAR HEMOGLOBIN 30.4 pg (27.0-33.0)
[2023-09-24 21:07] LABS: IgG P18 AB Absent (.); IgG P23 AB Absent (.); IgG P28 AB Absent (.); IgG P30 AB Absent (.); IgG P39 AB Absent (.); IgG P41 AB Present (.); IgG P45 AB Absent (.); IgG P66 AB Absent (.); IgG P93 AB Absent (.); IgM P23 AB Absent (.); IgM P39 AB Absent (.); IgM P41 AB Absent (.); LYME IgG WB INTERPRETATION Negative (.); LYME IgM WB INTERPRETATION Negative (.)
== END ==
LOC: M LAB REF 13:46
PROVIDERS: ATTEND Internal Medicine Infectious Disease
DX: Z86.19 Personal history of other infectious and parasitic diseases (principal)

== ENCOUNTER → 2023-09-23 | Outpatient (REF) | payer OTHER ==
[2023-09-23 14:57] LABS: BASO # 0.1 10^3/uL (0.0-0.2); BASO % 0.6 % (0.0-1.0); EOS # 0.1 10^3/uL (0.0-0.5); EOS % 1.6 % (0.0-3.0); HEMATOCRIT 43.2 % (42.0-52.0); LYMPH # 2.9 10^3/uL (1.5-5.0); LYMPH % 36.9 % (24.0-44.0); MEAN CORPUSCULAR VOLUME 92.5 fl (80.0-96.0); MONO # 0.5 10^3/uL (0.0-0.8); MONO % 6.6 % (2.0-8.0); NEUTROPHILS # 4.3 10^3/uL (1.5-8.5); NEUTROPHILS % 53.9 % (36.0-66.0); PLATELET COUNT, AUTOMATED 285 10^3/uL (150-450); RED BLOOD COUNT 4.67 10^6/uL (4.30-6.10); WHITE BLOOD COUNT 7.9 10^3/uL (4.0-10.0)
[2023-09-23 15:36] LABS: HEMOGLOBIN A1c 9.4 % (4.0-6.0)
[2023-09-23 15:42] LABS: THYROID STIMULATING HORMONE 3.309 uIU/ML (0.55-4.78); TOTAL 25(OH) VITAMIN D 6.5 NG/ML (20.0-100.0)
[2023-09-23 16:16] LABS: ALKALINE PHOSPHATASE 103 U/L (46-116); BILIRUBIN,TOTAL < 0.2 MG/DL (0.3-1.2); BLOOD UREA NITROGEN 18 MG/DL (9-23); CALCIUM LEVEL 9.1 MG/DL (8.5-10.1); CARBON DIOXIDE LEVEL 26 MMOL/L (20-31); CHLORIDE LEVEL 93 MMOL/L (98-107); CHOLESTEROL LEVEL 557 MG/DL (<200); CREATININE FOR GFR 0.53 MG/DL (0.70-1.30); GLOMERULAR FILTRATION RATE > 60.0 (>60); GLUCOSE, FASTING 261 MG/DL (60-100); POTASSIUM SERUM 4.7 MMOL/L (3.5-5.1); SODIUM LEVEL 124 MMOL/L (136-145); TRIGLYCERIDES LEVEL 5709 MG/DL (<150)
[2023-09-23 16:17] LABS: ALBUMIN 4.1 G/DL (3.2-5.2); CHOLESTEROL RISK RATIO 20.55 (<5); HDL CHOLESTEROL 27.1 MG/DL (>40); NON-HDL-C 529.9 MG/DL; TOTAL PROTEIN 6.5 G/DL (5.7-8.2)
[2023-09-23 17:12] LABS: HEMOGLOBIN 15.1 g/dl (13.5-17.5)
[2023-09-23 17:13] LABS: MEAN CORPUSCULAR HEMOGLOBIN 32.3 pg (27.0-33.0)
== END ==
LOC: M LABDRWAD 13:45
PROVIDERS: ATTEND Physical Therapist
DX: E11.8 Type 2 diabetes mellitus with unspecified complications (principal); E78.5 Hyperlipidemia, unspecified; E55.9 Vitamin D deficiency, unspecified

== ENCOUNTER → 2023-11-05 | Outpatient (CLI) | payer OTHER | LOC: M PLAIMG 07:08 | PROVIDERS: ATTEND Orthopaedic Surgery | DX: M51.16 Intervertebral disc disorders with radiculopathy, lumbar region (principal); M47.896 Other spondylosis, lumbar region; M47.897 Other spondylosis, lumbosacral region ==

== ENCOUNTER → 2024-09-13 | Outpatient (REF) | payer OTHER ==
[2024-09-13 15:36] LABS: THYROID STIMULATING HORMONE 2.498 uIU/ML (0.55-4.78); TOTAL 25(OH) VITAMIN D 13.7 NG/ML (20.0-100.0)
[2024-09-13 15:44] LABS: URIC ACID 4.6 MG/DL (3.7-9.2)
[2024-09-13 15:48] LABS: ALBUMIN 3.7 G/DL (3.2-5.2); ALKALINE PHOSPHATASE 71 U/L (40-129); ALT/SGPT 15 U/L (7.0-40); AST/SGOT 12 U/L (<34); BILIRUBIN,TOTAL 0.2 MG/DL (0.3-1.2); BLOOD UREA NITROGEN 8 MG/DL (9-23); CALCIUM LEVEL 9.5 MG/DL (8.5-10.1); CARBON DIOXIDE LEVEL 27 MMOL/L (20-31); CHLORIDE LEVEL 102 MMOL/L (98-107); CHOLESTEROL LEVEL 225 MG/DL (<200); CHOLESTEROL RISK RATIO 9.95 (<5); CREATININE FOR GFR 0.78 MG/DL (0.70-1.30); GLOMERULAR FILTRATION RATE > 60.0 (>60); GLUCOSE, FASTING 213 MG/DL (60-100); HDL CHOLESTEROL 22.6 MG/DL (>40); NON-HDL-C 202.4 MG/DL; POTASSIUM SERUM 4.6 MMOL/L (3.5-5.1); SODIUM LEVEL 134 MMOL/L (136-145); TOTAL PROTEIN 7.4 G/DL (5.7-8.2)
[2024-09-13 16:05] LABS: TRIGLYCERIDES LEVEL 1064 MG/DL (<150)
[2024-09-13 17:50] LABS: HEMOGLOBIN A1c 8.9 % (4.0-6.0)
== END ==
LOC: M LABDRWAD 13:06
PROVIDERS: ATTEND Physical Therapist
DX: E11.9 Type 2 diabetes mellitus without complications (principal); E55.9 Vitamin D deficiency, unspecified; E78.5 Hyperlipidemia, unspecified; M10.9 Gout, unspecified

== ENCOUNTER → 2024-10-21 | Outpatient (REF) | payer OTHER | LOC: M LABDRWAD 13:14 | PROVIDERS: ATTEND Orthopaedic Surgery | DX: M51.16 Intervertebral disc disorders with radiculopathy, lumbar region (principal); M16.12 Unilateral primary osteoarthritis, left hip ==

== ENCOUNTER → 2025-01-31 | Outpatient (REF) ==
[~2025-01-31] MED LIST changes: +LIDO1ADH93 TD; -LIDO5DIS41 TD
== END ==
LOC: M PLAIMG 13:50
PROVIDERS: ATTEND Internal Medicine
DX: R52 Pain, unspecified (principal)